=== PATIENT | female | born 2000 | race Two or more races ===

== ENCOUNTER 2022-05-04 00:44 | Emergency (ER) | payer MEDICAID ==
[~2022-05-04] VITALS: Ht 172.7 cm; Wt 61.0 kg
[2022-05-04 01:01] VITALS: BP 114/77
[2022-05-04] MEDS ORDERED: ONDANSETRON 4MG ODT PO ONE (01:45)
== END 2022-05-04 03:30 | disposition home or self-care (01) ==
LOC: ER 01:06
DX: T40.713A Poisoning by cannabis, assault, initial encounter (principal); F12.929 Cannabis use, unspecified with intoxication, unspecified; R45.0 Nervousness; R53.83 Other fatigue; Y07.59 Other non-family member, perpetrator of maltreatment and neglect; Y92.89 Other specified places as the place of occurrence of the external cause
CPT/HCPCS: 99283; Q0162